=== PATIENT | male | born 1955 | race Hispanic/Latino ===

== ENCOUNTER 2018-06-13 15:57 | Emergency (ER) | payer SELFPAY ==
[2018-06-13 17:47] LABS: #Eosinphils 0.1 thou/uL (0.0-0.7); #Lymphocytes 1.4 thou/uL (1.20-3.40); #Monocytes 0.7 thou/uL (0.11-0.59); #Neutrophils 2.9 thou/uL (1.40-6.50); %Basophils 0.6 % (0.0-1.0); %Eosinophils 2.4 % (0.0-10.0); %Lymphocytes 27.5 % (21.0-51.0); %Monocytes 13.5 % (0.0-10.0); Hemoglobin 16.2 g/dL (14.0-18.0); Mean Corpuscular HGB CONC 35.3 g/dL (32.0-36.0); Mean Corpuscular Hemoglobin 33.1 pg (27.0-31.0); Mean Corpuscular Volume 93.8 fL (78.0-98.0); Mean Platelet Volume 8.5 fL (7.4-10.4); Platelet Count 161 thou/uL (130-400); RBC Distribution Width 12.3 % (11.5-14.5); White Blood Cell (WBC) Count 5.2 thou/uL (4.8-10.8)
== END 2018-06-13 17:16 | disposition home or self-care (01) ==
LOC: ERS 15:57
DX: K92.2 Gastrointestinal hemorrhage, unspecified (principal); I10 Essential (primary) hypertension; E78.5 Hyperlipidemia, unspecified
CPT/HCPCS: 36415; 99285